=== PATIENT | male | born 1960 | race Caucasian/White ===

== ENCOUNTER 2017-03-28 15:28 | Emergency (ER) | payer OTHER ==
--- NOTE | 2017-03-28 16:55 | DIAGNOSTIC IMAGING REPORT ---
PROCEDURE: XR FOOT 3 VIEWS - LEFT INDICATION: PAIN TECHNIQUE: Three views. COMPARISON: None. FINDINGS: Osseous structures and joint spaces are normal. IMPRESSION: 1. Normal left foot.
--- NOTE | 2017-03-28 17:13 | ED ORDER SUMMARY ---
..... Patient: MICHELLE SAENZ OrderSheet [facility] VisitID: [id number] [place] [address] 56y, M Registration Date/Time: 03/28/2017 ORDER SHEET Weight: 156.4 kg (stated) Allergies: Penicillin GENERAL ORDERS: Foot 3V Left Urgent (15:49 03/28/2017 HBivens A.R.N.P.) (Ack 16:05 LNations ER Tech1) (16:16 LNations ER Tech1) US Venous Left Urgent (15:50 03/28/2017 HBivens A.R.N.P.) (Ack 16:05 LNations ER Tech1) (17:29 Latasha R.N.) MEDICATION ORDERS: IV FLUIDS: ORDER SHEET NOTES: [Electronically signed by Neeta Keller R.N. (17:29 03/28/2017)] [Electronically signed by Prabha PinkR.N.PAj (20:53 03/28/2017)] [Electronically locked/signed by Neeta Keller R.N. (17:29 03/28/2017)]
--- NOTE | 2017-03-28 17:13 | ED NURSING NOTES ---
Clinical Report - Nurses [facility] [address] [place] [address] 03/28/2017 15:29 Patient: MICHELLE SAENZ TRIAGE Triage time 15:37 Mar 28 2017. Chief Complaint: LEFT LOWER EXTREMITY PAIN. Location of symptoms- (pt reports yesterday taking his boot off of left foot and c/o left heel pain, pt with hx of "blood clots" to left leg, pt reports "i'm always short of breath cause I have blood clots in my lungs" however pt denies any new symptoms or changes in breathing pattern, pt saw his pcp this morning and when asked what his doctor said "you really don't want me to answer that"). Alert. No acute distress. BARBARA COMA SCORE: [place] Coma Scale: 15- eyes open spontaneously (4); best verbal response- oriented x 4 (5); best motor response- obeys commands (6). --15:45 Neeta Keller R.N. 15:37 03/28/17. BP: 123/74. HR: 92. RR: 19. O2 saturation: 95%. Temp: 98.6 F. Pain level now: 8/10. --15:45 Netea Keller R.N. Weight: 156.4 kg stated. Height/Length: 74 inches Per Patient. BMI: 44.3. --15:42 PageNeeta Moore R.N. Medications "blood thinner". --15:40 PageNeeta Moore R.N. Medication/allergy information source: the patient. --15:45 Neeta Keller R.N. Allergies Penicillin. --15:39 PageNeeta Moore R.N. History Arrived by private vehicle. Historian: patient. This occurred (yesterday). Provoking / relieving factors: worsened by movement; relieved by standing and walking. 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 PAST MEDICAL HX: Tetanus status: up-to-date. Immunizations: up-to-date. SOCIAL HX: Smoker- current status unknown. No alcohol use or drug use. No infectious disease exposure. ABUSE ASSESSMENT: No report of abuse. SELF HARM ASSESSMENT: A self harm assessment was performed. The patient answered "no" to the question "Do you have thoughts of harming or killing yourself?". FALL RISK ASSESSMENT: Fall risk assessment completed. No fall risk identified. NUTRITIONAL RISK ASSESSMENT: The nutritional risk assessment revealed no deficiencies. FUNCTIONAL ASSESSMENT: Functional assessment: no impairments noted. LEARNING NEEDS ASSESSMENT: The learning needs assessment revealed no barriers. SKIN INTEGRITY ASSESSMENT: Skin integrity risk assessment completed. No skin integrity risk identified. --15:45 Neeta Keller R.N. PROBLEMS: Pulmonary Embolism. DVT - Deep Venous Thrombosis. Low back pain. Smoker. --15:41 Neeta Keller R.N. ADDITIONAL SURGERIES: Appendectomy. --15:41 Netea Keller R.N. Interventions ID and allergy band on patient. --15:45 Neeta Keller R.N. PHYSICAL ASSESSMENT Ambulatory to room. (walked using cane, CLAIMS COORDINATOR at bedside explaining plan of care to pt). GENERAL / NEURO / PSYCH: Oriented X 4. Alert. Appears in no acute distress. EXTREMITIES: Lower extremity edema. bilat edema to feet, pt has very poor hygeine to entire body, very poorly kept. No calf tenderness. Left foot: (co pain to left heel, pain increases when weight is lifted). SKIN: Skin is warm and dry. --15:47 Neeta Keller R.N. NURSING PROGRESS NOTES ( US in progress). --16:37 Neeta Keller R.N. DISPOSITION / DISCHARGE No learning barriers present. Discharge instructions provided and reviewed with the patient. Reviewed medication(s) side effects and course information. Prescription(s) given to the patient. Patient verbalized understanding. Written instructions provided in Khmer. The patient was discharged by the nurse practitioner. He was discharged home. He left the Emergency Department ambulatory and via private vehicle. Patient driving. ( pt enc to f/u with pcp and inquire on foot care, pt is dirty, has fungus on bilat feet, hands have ground in dirt and clothing is dirty. pt reports he is not homeless, takes baths, pt enc to f/u as directed by CLAIMS COORDINATOR). --17:27 Neeta Keller R.N. 17:25 03/28/17. BP: 119/78. HR: 87. RR: 19. O2 saturation: 96%. Temp: deferred. Pain level now: 05/17. --17:27 Neeta Keller R.N. Locked/Released at 03/28/2017 17:29 by Neeta Keller R.N.
--- NOTE | 2017-03-28 17:13 | ED ORDER SUMMARY ---
..... Patient: MICHELLE SAENZ OrderSheet [facility] VisitID: [id number] [place] [address] 56y, M Registration Date/Time: 03/28/2017 ORDER SHEET Weight: 156.4 kg (stated) Allergies: Penicillin GENERAL ORDERS: Foot 3V Left Urgent (15:49 03/28/2017 HBivens A.R.N.P.) (Ack 16:05 LNations ER Tech1) (16:16 LNations ER Tech1) US Venous Left Urgent (15:50 03/28/2017 HBivens A.R.N.P.) (Ack 16:05 LNations ER Tech1) (17:29 Latasha R.N.) MEDICATION ORDERS: IV FLUIDS: ORDER SHEET NOTES: [Electronically signed by Neeta Keller R.N. (17:29 03/28/2017)] [Electronically signed by Prabha PinkR.N.PAj (20:53 03/28/2017)] [Electronically locked/signed by Neeta Keller R.N. (17:29 03/28/2017)]
--- NOTE | 2017-03-28 17:13 | ED CLINICAL REPORT ---
Clinical Report - Physicians/Mid Levels [facility] [address] [place] [address] 03/28/2017 15:29 Patient: MICHELLE SAENZ Time Seen: 1540; upon arrival, initial patient contact, initial documentation, patient care assumed. Arrived- By private vehicle. Historian- patient. HISTORY OF PRESENT ILLNESS Chief Complaint: LOWER EXTREMITY PAIN. This started last night and is still present. It was abrupt in onset. Modifying factors. Relieved by standing. (says pain is relieved when he puts weight or pressure on it). Severity is described as being severe. The quality is noted to be "pain". No radiation. Symptoms located in the area of the left foot. The patient has not had redness. He has had swelling, (no new swelling). No difficulty walking. No bladder dysfunction, bowel dysfunction, sensory loss or motor loss. ( states he was taking off his boot and the pain started instantly in his heal). Patient denies an injury. Similar symptoms previously: None. Recent medical care: Not recently seen/assessed. REVIEW OF SYSTEMS No chest pain, difficulty breathing or fever. All systems otherwise negative, except as recorded above. PAST HISTORY See nurses notes. ( PROBLEMS: Pulmonary Embolism. DVT - Deep Venous Thrombosis. Low back pain. Smoker. --15:41 Neeta Keller, R.N. ADDITIONAL SURGERIES: Appendectomy. --15:41 PageNeeta Moore, R.N.). SOCIAL HISTORY Heavy tobacco smoker. No alcohol use or drug use. No recent travel. Is a local resident. FAMILY HISTORY Negative. ADDITIONAL NOTES The nursing notes have been reviewed with agreement regarding the chief complaint, HPI, ROS, PMH and patient medications and allergies. PHYSICAL EXAM Vital Signs: 03/28/2017 15:37 BP: 123/74. HR: 92. RR: 19. O2 saturation: 95%. Temp: 98.6 F. Pain level now: 8/10. Have been reviewed as normal and appear to be correct. Appearance: Alert. Oriented X3. No acute distress. (pt dirty and and unkept, and cussing alot). Eyes: Pupils equal, round and reactive to light. Eyes normal inspection. Neck: Normal inspection. Neck supple. CVS: Normal heart rate and rhythm. Heart sounds normal. Respiratory: No respiratory distress. Breath sounds abnormal. Mild bilateral rhonchi present diffusely. Abdomen: (obese). Skin: Skin intact. Skin warm and dry. Normal skin color. Normal skin turgor. Moderate skin rash located on the right foot and left foot (B tinea pedis, includes toe nails). Extremities: Lower extremities exhibit normal ROM. Lower extremity edema present. Bilateral moderate 2+ pitting edema of the lower extremities involving both feet, both ankles and both lower legs. Extremities otherwise negative. Gait: Abnormal gait. Limping gait. (walk with cane, normal for him). Neuro: Oriented X 3. No motor deficit. No sensory deficit. LABS, X-RAYS, AND EKG X-Rays: Left foot negative. Lt Foot X-ray: (IMPRESSION: 1. Normal left foot. Electronically Final signed by:Kuldip Shafer MD 03/28/2017 4:55:54 PM). The X-rays were interpreted by the radiologist and contemporaneously by me. Interpretation time: 16:55. Lower Extremity Sonography: Negative study. per verbal report by US ilda Vera. Interpretation time: 17:04. PROGRESS AND PROCEDURES Course of Care: 16:55 03/28/17. US at bedside. Patient counseled in person regarding the patient's stable condition, test results and diagnosis. 17:05. Differential Diagnosis: I considered fracture, stress fracture, bone spur, bone contusion, rheumatoid arthritis, gout, pseudogout, sprain, soft tissue injury, myositis, fasciitis, tendonitis, bursitis, ischemia, embolism and deep venous thrombosis as a possible cause of lower extremity pain in this patient. This is a partial list of diagnoses considered. Above considerations are based on history, physical exam, reassessment, X-Ray data and other information. Differential diagnosis was discussed with patient. Disposition: Discharged home in good and unchanged condition (17:06). Condition: good and stable. CLINICAL IMPRESSION Acute left foot pain. INSTRUCTIONS Warnings: GENERAL WARNINGS: Return or contact your physician immediately if your condition worsens or changes unexpectedly, if not improving as expected, or if other problems arise. Specifically return if problem worsens. Prescription Medications: Ultram 50 mg tablets: take 1-2 orally every 6 hours as needed for pain. Dispense twenty (20). No refills. Substitution is permissible. Follow-up: Follow up with your doctor in about one week even if well. Call for an appointment. Summary of care provided to patient. Understanding of the discharge instructions verbalized by patient. (Electronically signed by Prabha iPnk A.R.N.P. 03/28/2017 20:53)
--- NOTE | 2017-03-28 17:13 | ED NURSING NOTES ---
Clinical Report - Nurses [facility] [address] [place] [address] 03/28/2017 15:29 Patient: MICHELLE SAENZ TRIAGE Triage time 15:37 Mar 28 2017. Chief Complaint: LEFT LOWER EXTREMITY PAIN. Location of symptoms- (pt reports yesterday taking his boot off of left foot and c/o left heel pain, pt with hx of "blood clots" to left leg, pt reports "i'm always short of breath cause I have blood clots in my lungs" however pt denies any new symptoms or changes in breathing pattern, pt saw his pcp this morning and when asked what his doctor said "you really don't want me to answer that"). Alert. No acute distress. BARBARA COMA SCORE: [place] Coma Scale: 15- eyes open spontaneously (4); best verbal response- oriented x 4 (5); best motor response- obeys commands (6). --15:45 Neeta Keller R.N. 15:37 03/28/17. BP: 123/74. HR: 92. RR: 19. O2 saturation: 95%. Temp: 98.6 F. Pain level now: 8/10. --15:45 Neeta Keller R.N. Weight: 156.4 kg stated. Height/Length: 74 inches Per Patient. BMI: 44.3. --15:42 PageNeeta Moore R.N. Medications "blood thinner". --15:40 PageNeeta Moore R.N. Medication/allergy information source: the patient. --15:45 Neeta Keller R.N. Allergies Penicillin. --15:39 PageNeeta Moore R.N. History Arrived by private vehicle. Historian: patient. This occurred (yesterday). Provoking / relieving factors: worsened by movement; relieved by standing and walking. 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 PAST MEDICAL HX: Tetanus status: up-to-date. Immunizations: up-to-date. SOCIAL HX: Smoker- current status unknown. No alcohol use or drug use. No infectious disease exposure. ABUSE ASSESSMENT: No report of abuse. SELF HARM ASSESSMENT: A self harm assessment was performed. The patient answered "no" to the question "Do you have thoughts of harming or killing yourself?". FALL RISK ASSESSMENT: Fall risk assessment completed. No fall risk identified. NUTRITIONAL RISK ASSESSMENT: The nutritional risk assessment revealed no deficiencies. FUNCTIONAL ASSESSMENT: Functional assessment: no impairments noted. LEARNING NEEDS ASSESSMENT: The learning needs assessment revealed no barriers. SKIN INTEGRITY ASSESSMENT: Skin integrity risk assessment completed. No skin integrity risk identified. --15:45 Neeta Keller R.N. PROBLEMS: Pulmonary Embolism. DVT - Deep Venous Thrombosis. Low back pain. Smoker. --15:41 Neeta Keller R.N. ADDITIONAL SURGERIES: Appendectomy. --15:41 Neeta Keller R.N. Interventions ID and allergy band on patient. --15:45 Neeta Keller R.N. PHYSICAL ASSESSMENT Ambulatory to room. (walked using cane, COMMUTATOR V RING ASSEMBLER at bedside explaining plan of care to pt). GENERAL / NEURO / PSYCH: Oriented X 4. Alert. Appears in no acute distress. EXTREMITIES: Lower extremity edema. bilat edema to feet, pt has very poor hygeine to entire body, very poorly kept. No calf tenderness. Left foot: (co pain to left heel, pain increases when weight is lifted). SKIN: Skin is warm and dry. --15:47 Neeta Keller R.N. NURSING PROGRESS NOTES ( US in progress). --16:37 Neeta Keller R.N. DISPOSITION / DISCHARGE No learning barriers present. Discharge instructions provided and reviewed with the patient. Reviewed medication(s) side effects and course information. Prescription(s) given to the patient. Patient verbalized understanding. Written instructions provided in Nepali. The patient was discharged by the nurse practitioner. He was discharged home. He left the Emergency Department ambulatory and via private vehicle. Patient driving. ( pt enc to f/u with pcp and inquire on foot care, pt is dirty, has fungus on bilat feet, hands have ground in dirt and clothing is dirty. pt reports he is not homeless, takes baths, pt enc to f/u as directed by COMMUTATOR V RING ASSEMBLER). --17:27 Neeta Keller R.N. 17:25 03/28/17. BP: 119/78. HR: 87. RR: 19. O2 saturation: 96%. Temp: deferred. Pain level now: 05/17. --17:27 Neeta Keller R.N. Locked/Released at 03/28/2017 17:29 by Neeta Keller R.N.
--- NOTE | 2017-03-28 17:19 | DIAGNOSTIC IMAGING REPORT ---
PROCEDURE: US VENOUS - LEFT EXT INDICATION: PAIN TECHNIQUE: Duplex sonography of the deep venous system in the left lower extremity was performed. Compression and augmentation techniques were used. COMPARISON: None. FINDINGS: Each interrogated segment of deep vein from the common femoral vein into the calf veins demonstrates normal compressibility, augmentation and/or color Doppler flow without filling defect. No evidence of significant soft-tissue edema, soft-tissue mass or cyst. IMPRESSION: 1. No deep venous thrombosis in the left lower extremity.
--- NOTE | 2017-03-28 20:53 | ED MED RECONCILIATION SUMMARY ---
Patient: MICHELLE SAENZ Medication Reconciliation Report [facility] VisitID: [id number] [address] [place] [address] 56y, M Registration Date/Time: 03/28/2017 Weight: 156.4 kg Height/Length: 74 in. BMI: 44.3 ALLERGIES: Penicillin The patient's Home Medications are listed below: THE FOLLOWING MEDICATIONS NEED TO BE RECONCILED: "blood thinner" The source(s) of the original Home Medication information: patient The following Medications were given to the patient in the Emergency Department: None. The following Medications were prescribed to the patient: Ultram 50 mg tablets: take 1-2 orally every 6 hours as needed for pain. Dispense twenty (20). No refills. Substitution is permissible. -- Prabha Pink A.R.N.P.
--- NOTE | 2017-03-28 20:53 | ED MAR SUMMARY ---
..... Medication Administration Record [facility] [address] [id number] Patient: MICHELLE SAENZ Deo Visit ID: [id number] 56y, M Weight: 156.4 kg Height/Length: 74 in BMI: 44.3 ALLERGIES: Penicillin
--- NOTE | 2017-03-28 20:53 | ED DISCHARGE INSTRUCTIONS ---
Patient: MICHELLE SAENZ General Instructions [facility] VisitID: [id number] [place] [address] 56y, M Registration Date/Time: 03/28/2017 Acute left foot pain. INSTRUCTIONS Warnings: GENERAL WARNINGS: Return or contact your physician immediately if your condition worsens or changes unexpectedly, if not improving as expected, or if other problems arise. Specifically return if problem worsens. Prescription Medications: Ultram 50 mg tablets: take 1-2 orally every 6 hours as needed for pain. Dispense twenty (20). No refills. Substitution is permissible. Follow-up: Follow up with your doctor in about one week even if well. Call for an appointment. Summary of care provided to patient. Understanding of the discharge instructions verbalized by patient. ADDITIONAL INFORMATION Myofascial Pain Syndrome: Fibrositis Your pain is caused by a state of chronic muscle tension. This condition is called by various names: myofascial pain, fibrositis and trigger point pain. This can also be due to mechanical stress (such as working at a computer terminal for long periods; or work that requires repetitive motions of the arms or hands) or emotional stress (such as problems on the job or in your personal life). Sometimes there is no obvious cause. The pain can occur in the area of the muscle spasm or at a site distant to it. For example, spasm of a neck muscle can cause headache. Spasm of the muscle near the shoulder blade can cause pain shooting down the arm. Home Care: Try to identify the factors that may be causing your problem and change them: If you feel thatemotional stressis a cause of your pain, learn methods to deal more effectively with the stress in your life. These may include regular exercise, muscle relaxation techniques, meditation or simply taking time out for yourself. Consult your doctor or go to a local bookstore and review the many books and tapes available on the subject of stress reduction. If you feel that physical stress is a cause for your pain, try to modify any poor work habits. You may use acetaminophen (Tylenol) or ibuprofen (Motrin, Advil) to control pain, unless another medicine was prescribed. [NOTE: If you have chronic liver or kidney disease or ever had a stomach ulcer or GI bleeding, talk with your doctor before using these medicines.] The use of heat to the muscle (hot compress or heating pad) will be helpful to reduce muscle spasm. Some persons get relief with ice packs. Apply an ice pack (crushed or cubed ice in a plastic bag, wrapped in a towel) for 20 minutes at a time as needed. Use the method that feels best to you. Massaging the trigger point and stretching out the muscleare an important parts of prevention and treatment. Trigger point massage can be done by first applying heat to the area to warm and prepare the muscle. Have someone apply steady thumb pressure directly on the knot in the muscle (the most tender point) for 30 seconds. Release the pressure, then massage the surrounding muscle. Repeat the process, applying more pressure to the trigger point each time. Do this up to the limit of pain. With each treatment, the trigger point should become less tender and the pain should decrease. You can apply local pressure to trigger points in the back by lying on the floor with a tennis ball under the trigger point. Follow Up with your doctor as advised or if not improving within the next week. It may be necessary for you to receive physical therapy if you do not respond to home treatment alone. Get Prompt Medical Attention if any of the following occur: If your trigger point is in the chest muscles, observe for pain that becomes more severe, lasts longer, or spreads into your shoulder/arm, neck or back; you develop trouble breathing, sweating, nausea or vomiting in association with chest pain If you develop weakness or numbness in an extremity If your pain worsens, regardless of its location Tramadol Hydrochloride Oral tablet What is this medicine? TRAMADOL (TRA ma dole) is a pain reliever. It is used to treat moderate to severe pain in adults. How should I use this medicine? Take this medicine by mouth with a full glass of water. Follow the directions on the prescription label. If the medicine upsets your stomach, take it with food or milk. Do not take more medicine than you are told to take. Talk to your launderette attendant regarding the use of this medicine in children. Special care may be needed. What side effects may I notice from receiving this medicine? Side effects that you should report to your doctor or health care coordination manager as soon as possible: allergic reactions like skin rash, itching or hives, swelling of the face, lips, or tongue breathing difficulties, wheezing confusion itching light headedness or fainting spells redness, blistering, peeling or loosening of the skin, including inside the mouth seizures Side effects that usually do not require medical attention (report to your doctor or health care coordination manager if they continue or are bothersome): constipation dizziness drowsiness headache nausea, vomiting What may interact with this medicine? Do not take this medicine with any of the following medications: MAOIs like Carbex, Eldepryl, Marplan, Nardil, and Parnate This medicine may also interact with the following medications: alcohol or medicines that contain alcohol antihistamines benzodiazepines bupropion carbamazepine or oxcarbazepine clozapine cyclobenzaprine digoxin furazolidone linezolid medicines for depression, anxiety, or psychotic disturbances medicines for migraine headache like almotriptan, eletriptan, frovatriptan, naratriptan, rizatriptan, sumatriptan, zolmitriptan medicines for pain like pentazocine, buprenorphine, butorphanol, meperidine, nalbuphine, and propoxyphene medicines for sleep muscle relaxants naltrexone phenobarbital phenothiazines like perphenazine, thioridazine, chlorpromazine, mesoridazine, fluphenazine, prochlorperazine, promazine, and trifluoperazine procarbazine warfarin What if I miss a dose? If you miss a dose, take it as soon as you can. If it is almost time for your next dose, take only that dose. Do not take double or extra doses. Where should I keep my medicine? Keep out of the reach of children. Store at room temperature between 15 and 30 degrees C (59 and 86 degrees F). Keep container tightly closed. Throw away any unused medicine after the expiration date. What should I tell my health care provider before I take this medicine? They need to know if you have any of these conditions: brain tumor depression drug abuse or addiction head injury if you frequently drink alcohol containing drinks kidney disease or trouble passing urine liver disease lung disease, asthma, or breathing problems seizures or epilepsy suicidal thoughts, plans, or attempt; a previous suicide attempt by you or a family member an unusual or allergic reaction to tramadol, codeine, other medicines, foods, dyes, or preservatives or trying to get breast-feeding What should I watch for while using this medicine? Tell your doctor or health care coordination manager if your pain does not go away, if it gets worse, or if you have new or a different type of pain. You may develop tolerance to the medicine. Tolerance means that you will need a higher dose of the medicine for pain relief. Tolerance is normal and is expected if you take this medicine for a long time. Do not suddenly stop taking your medicine because you may develop a severe reaction. Your body becomes used to the medicine. This does NOT mean you are addicted. Addiction is a behavior related to getting and using a drug for a non-medical reason. If you have pain, you have a medical reason to take pain medicine. Your doctor will tell you how much medicine to take. If your doctor wants you to stop the medicine, the dose will be slowly lowered over time to avoid any side effects. You may get drowsy or dizzy. Do not drive, use machinery, or do anything that needs mental alertness until you know how this medicine affects you. Do not stand or sit up quickly, especially if you are an older patient. This reduces the risk of dizzy or fainting spells. Alcohol can increase or decrease the effects of this medicine. Avoid alcoholic drinks. You may have constipation. Try to have a bowel movement at least every 2 to 3 days. If you do not have a bowel movement for 3 days, call your doctor or health care coordination manager. Your mouth may get dry. Chewing sugarless gum or sucking hard candy, and drinking plenty of water may help. Contact your doctor if the problem does not go away or is severe. You have been given the following additional information: Myofascial Pain Syndrome Tramadol Hydrochloride Oral tablet (Electronically signed by Prabha Pink A.R.N.P. 03/28/2017 20:53)
--- NOTE | 2017-03-28 20:53 | ED MED RECONCILIATION SUMMARY ---
Patient: MICHELLE SAENZ Medication Reconciliation Report [facility] VisitID: [id number] [address] [place] [address] 56y, M Registration Date/Time: 03/28/2017 Weight: 156.4 kg Height/Length: 74 in. BMI: 44.3 ALLERGIES: Penicillin The patient's Home Medications are listed below: THE FOLLOWING MEDICATIONS NEED TO BE RECONCILED: "blood thinner" The source(s) of the original Home Medication information: patient The following Medications were given to the patient in the Emergency Department: None. The following Medications were prescribed to the patient: Ultram 50 mg tablets: take 1-2 orally every 6 hours as needed for pain. Dispense twenty (20). No refills. Substitution is permissible. -- Prabha Pink A.R.N.P.
--- NOTE | 2017-03-28 20:53 | ED MAR SUMMARY ---
..... Medication Administration Record [facility] [address] [place] [place], [place] [id number] Patient: MICHELLE SAENZ Deo Visit ID: [id number] 56y, M Weight: 156.4 kg Height/Length: 74 in BMI: 44.3 ALLERGIES: Penicillin
== END 2017-03-28 17:21 | disposition home or self-care (01) ==
LOC: ED SRH 15:28
DX: M79.672 Pain in left foot (principal); F17.210 Nicotine dependence, cigarettes, uncomplicated; Z88.0 Allergy status to penicillin